=== PATIENT | female | born 1975 | race Caucasian/White ===

== ENCOUNTER → 2020-09-01 08:38 | Outpatient (BNVA) | payer BC, SELFPAY | PROVIDERS: PCP Internal Medicine; Visit Provider Internal Medicine Gastroenterology | DX: Z76.89 Persons encountering health services in other specified circumstances (principal) ==

== ENCOUNTER 2023-02-03 14:04 | Outpatient (REF) | payer BC, SELFPAY ==
[2023-02-03 15:09] LABS: MANUAL DIFF FLAG NO
[2023-02-03 15:45] LABS: Basophils Absolute Auto 0.1 X10*3/uL (0.0-0.2); Basophils Percent Auto 0.5 % (0-2); Eosinophils Absolute Auto 0.1 X10*3/uL (0.0-0.4); Eosinophils Percent Auto 1.3 % (0-4); Hematocrit 41.1 % (37.0-47.0); Imm Gran Abs Auto 0.03 X10*3/uL (0.00-0.03); Imm Gran Pct Auto 0.3 % (0.0-0.4); Lymphocytes Absolute Auto 2.4 X10*3/uL (1.2-4.9); Lymphocytes Percent Auto 24.2 % (20-40); Mean Corpuscular HGB Conc 34.1 g/dl (31.0-35.0); Mean Corpuscular Hemoglobin 30.8 pg (27.0-33.0); Mean Corpuscular Volume 90.5 fL (80.0-98.0); Mean Platelet Volume 10.3 fL (9.4-12.3); Monocytes Absolute Auto 0.7 X10*3/uL (0.1-1.2); Monocytes Percent Auto 6.6 % (2-11); Neutrophils Absolute Auto 6.6 x10*3/uL (2.0-8.3); Neutrophils Percent Auto 67.1 % (45-73); Platelet Count 303 X10*3/uL (160-400); Red Blood Count 4.54 X10*6/uL (4.20-5.50); Red Cell Distribution Width 13.1 % (11.0-16.0); White Blood Count 9.8 X10*3/uL (4.8-10.8)
[2023-02-03 16:22] LABS: Erythrocyte Sedimentation Rate 7 MM/HR (0-20)
[2023-02-03 16:28] LABS: Alanine Aminotransferase 21 U/L (0-31); Albumin Level 4.4 g/dL (3.5-5.0); Alkaline Phosphatase 50 U/L (39-117); Anion Gap 13 (12-20); Aspartate Amino Transferase 20 U/L (5-31); Bilirubin Total 0.4 mg/dL (0.0-1.0); Blood Urea Nitrogen 14 mg/dL (9-16); C Reactive Protein 0.23 mg/dL (< or = 0.50); Calcium 9.5 mg/dL (8.4-10.2); Carbon Dioxide 28 mmol/L (22-29); Chloride 104 mmol/L (96-108); Estimated Glomerular Filt Rate > 60; Glucose Random 88 mg/dL (60-115); Potassium 4.2 mmol/L (3.3-5.1); Sodium 141 mmol/L (135-145)
[2023-02-09 18:03] LABS: Calprotectin, Fecal 50 mcg/g
== END 2023-02-03 14:05 | disposition home or self-care (01) ==
LOC: HO.LAB 14:04
PROVIDERS: Visit Provider Internal Medicine Gastroenterology
DX: K75.81 Nonalcoholic steatohepatitis (NASH) (principal); K50.90 Crohn's disease, unspecified, without complications
CPT/HCPCS: 36415; 80053; 83993; 85025; 85652; 86140

== ENCOUNTER 2024-08-16 11:34 | Outpatient (REF) | payer BC, SELFPAY ==
[2024-08-16 12:23] LABS: MANUAL DIFF FLAG NO
[2024-08-16 12:53] LABS: Basophils Percent Auto 0.7 % (0-2); Eosinophils Absolute Auto 0.1 X10*3/uL (0.0-0.4); Eosinophils Percent Auto 1.4 % (0-4); Eosinophils Percent Auto 1.7 % (0-4); Hematocrit 39.3 % (37.0-47.0); Hematocrit 40.6 % (37.0-47.0); Hemoglobin 13.5 g/dl (12.0-16.0); Imm Gran Abs Auto 0.02 X10*3/uL (0.00-0.03); Imm Gran Pct Auto 0.3 % (0.0-0.4); Lymphocytes Absolute Auto 1.8 X10*3/uL (1.2-4.9); Lymphocytes Absolute Auto 1.9 X10*3/uL (1.2-4.9); Lymphocytes Percent Auto 30.5 % (20-40); Lymphocytes Percent Auto 32.1 % (20-40); Mean Corpuscular HGB Conc 33.3 g/dl (31.0-35.0); Mean Corpuscular HGB Conc 34.4 g/dl (31.0-35.0); Mean Corpuscular Hemoglobin 30.1 pg (27.0-33.0); Mean Corpuscular Hemoglobin 30.7 pg (27.0-33.0); Mean Corpuscular Volume 89.3 fL (80.0-98.0); Mean Corpuscular Volume 90.6 fL (80.0-98.0); Mean Platelet Volume 9.9 fL (9.4-12.3); Monocytes Absolute Auto 0.4 X10*3/uL (0.1-1.2); Monocytes Absolute Auto 0.5 X10*3/uL (0.1-1.2); Monocytes Percent Auto 7.3 % (2-11); Monocytes Percent Auto 7.8 % (2-11); Neutrophils Absolute Auto 3.3 x10*3/uL (2.0-8.3); Neutrophils Absolute Auto 3.4 x10*3/uL (2.0-8.3); Neutrophils Percent Auto 57.7 % (45-73); Neutrophils Percent Auto 59.5 % (45-73); Platelet Count 311 X10*3/uL (160-400); Platelet Count 315 X10*3/uL (160-400); Red Blood Count 4.48 X10*6/uL (4.20-5.50); Red Cell Distribution Width 13.2 % (11.0-16.0); White Blood Count 5.7 X10*3/uL (4.8-10.8); White Blood Count 5.8 X10*3/uL (4.8-10.8)
[2024-08-16 13:28] LABS: Alanine Aminotransferase 24 U/L (0-31); Alkaline Phosphatase 61 U/L (39-117); Anion Gap 14 (12-20); Aspartate Amino Transferase 20 U/L (5-31); Bilirubin Total 0.3 mg/dL (0.0-1.0); Blood Urea Nitrogen 10 mg/dL (9-16); C Reactive Protein 0.32 mg/dL (< or = 0.50); Calcium 9.1 mg/dL (8.4-10.2); Carbon Dioxide 24 mmol/L (22-29); Chloride 105 mmol/L (96-108); Estimated Glomerular Filt Rate > 60; Glucose Random 98 mg/dL (60-115); Potassium 3.9 mmol/L (3.3-5.1); Sodium 139 mmol/L (135-145); Total Protein 7.1 g/dL (6.5-8.0)
[2024-08-16 13:32] LABS: Alanine Aminotransferase 23 U/L (0-31); Alkaline Phosphatase 62 U/L (39-117); Anion Gap 13 (12-20); Aspartate Amino Transferase 21 U/L (5-31); Bilirubin Total 0.3 mg/dL (0.0-1.0); Blood Urea Nitrogen 10 mg/dL (9-16); C Reactive Protein 0.33 mg/dL (< or = 0.50); Carbon Dioxide 24 mmol/L (22-29); Chloride 106 mmol/L (96-108); Estimated Glomerular Filt Rate > 60; Glucose Random 100 mg/dL (60-115); Potassium 3.9 mmol/L (3.3-5.1); Sodium 139 mmol/L (135-145); Total Protein 7.1 g/dL (6.5-8.0)
[2024-08-16 13:42] LABS: Erythrocyte Sedimentation Rate 7 MM/HR (0-20)
[2024-08-16 13:52] LABS: Ferritin 37 ng/mL (10-250); TSH reflex Free T4 1.56 uIU/mL (0.32-4.0)
[2024-08-16 14:01] LABS: Folate 11.6 ng/mL (> or = 4.0); Vitamin B12 610 pg/mL (200-900)
[2024-08-19 20:43] LABS: Zinc 60 mcg/dL (60-130)
== END 2024-08-16 11:35 | disposition home or self-care (01) ==
LOC: HO.LAB 11:34
PROVIDERS: PCP Nurse Practitioner Gerontology; Visit Provider Internal Medicine Gastroenterology
DX: K50.90 Crohn's disease, unspecified, without complications (principal); K75.81 Nonalcoholic steatohepatitis (NASH)
CPT/HCPCS: 36415; 80053; 82607; 82728; 82746; 83735; 84443; 84630; 85025; 85652; 86140

== ENCOUNTER 2025-05-09 14:43 | Outpatient (REF) | payer BC, SELFPAY ==
[2025-05-09 15:49] LABS: MANUAL DIFF FLAG NO
[2025-05-09 16:03] LABS: Basophils Absolute Auto 0.1 X10*3/uL (0.0-0.2); Basophils Percent Auto 0.8 % (0-2); Eosinophils Absolute Auto 0.1 X10*3/uL (0.0-0.4); Eosinophils Percent Auto 1.3 % (0-4); Hemoglobin 13.8 g/dl (12.0-16.0); Imm Gran Abs Auto 0.01 X10*3/uL (0.00-0.03); Imm Gran Pct Auto 0.1 % (0.0-0.4); Lymphocytes Absolute Auto 2.6 X10*3/uL (1.2-4.9); Lymphocytes Percent Auto 32.9 % (20-40); Mean Corpuscular HGB Conc 33.7 g/dl (31.0-35.0); Mean Corpuscular Hemoglobin 29.9 pg (27.0-33.0); Mean Corpuscular Volume 88.9 fL (80.0-98.0); Mean Platelet Volume 9.7 fL (9.4-12.3); Monocytes Absolute Auto 0.6 X10*3/uL (0.1-1.2); Monocytes Percent Auto 7.6 % (2-11); Neutrophils Absolute Auto 4.5 x10*3/uL (2.0-8.3); Neutrophils Percent Auto 57.3 % (45-73); Platelet Count 312 X10*3/uL (160-400); Red Blood Count 4.61 X10*6/uL (4.20-5.50); Red Cell Distribution Width 12.8 % (11.0-16.0); White Blood Count 7.8 X10*3/uL (4.8-10.8)
[2025-05-09 16:24] LABS: Alanine Aminotransferase 25 U/L (0-31); Albumin Level 4.3 g/dL (3.5-5.0); Alkaline Phosphatase 48 U/L (39-117); Anion Gap 11 (12-20); Aspartate Amino Transferase 20 U/L (5-31); Bilirubin Total 0.4 mg/dL (0.0-1.0); Blood Urea Nitrogen 12 mg/dL (9-16); C Reactive Protein 0.34 mg/dL (< or = 0.50); Calcium 9.1 mg/dL (8.4-10.2); Carbon Dioxide 26 mmol/L (22-29); Chloride 106 mmol/L (96-108); Estimated Glomerular Filt Rate > 60; Glucose Random 96 mg/dL (60-115); Sodium 139 mmol/L (135-145)
== END 2025-05-09 14:44 | disposition home or self-care (01) ==
LOC: HO.LAB 14:43
PROVIDERS: PCP Nurse Practitioner Gerontology; Visit Provider Internal Medicine Gastroenterology
DX: K75.81 Nonalcoholic steatohepatitis (NASH) (principal); K50.90 Crohn's disease, unspecified, without complications; K21.9 Gastro-esophageal reflux disease without esophagitis
CPT/HCPCS: 36415; 80053; 85025; 86140

== ENCOUNTER 2025-05-09 14:43 | Outpatient (AMB) | payer BC, SELFPAY ==
--- NOTE | 2025-05-09 14:47 | A.OFFVIS_ITS ---
Vital Signs 05/09/25 14:48 Height 5 ft 5 in Weight 189 lb 9.561 oz BMI 31.5 BP 111/86 Blood Pressure Location Lt brachial Position Sitting Pulse 91 Intake Visit Reasons: f/u blood works Intake Note: Ema presents in the office as a follow up. CC: She states she has issues with her GERD and states that once in while she needs linzess due the taking mounjaro. Her bowels seem a little on the slow side due to that medication. Fleet Administrator Required: No Allergies erythromycin base Allergy (Mild, Verified 05/09/25 14:49) Stomach Upset HPI HPI f/u blood works: Details: 49 y/o f seen for f/u for crohns with ileitis, and erosions/ulcers, GERD here for f/u RECAP: last seen 09/01/2020 She had no major sx she had been on humira q2 weeks for 1-2 yrs 08/2019--VCE--no erosions, normal mucosa At visit 03/2020 she was c/o lower back pain, concern for SI joint inflammation, labs had been normal, she appeared to be in deep remission from crohns standpoint she went 'rogue' and stopped humira further w/u: fecal keli 07/2020--borderline 112 Xr pelvis--nml INTERIM: 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 VITAL SIGNS:see workflow HEENT: Nonicteric sclerae, PERRLA, EOMI. Oropharynx clear. Moist mucous membranes. Conjunctivae appear well perfused. No thyroid mass. CHEST: Chest wall is nontender. HEART: Regular rate and rhythm without murmurs. LUNGS: Clear to auscultation bilaterally. ABDOMEN: Soft, positive bowel sounds, nontender, no organomegaly.no flank tenderness SKIN: No rash, no excessive bruising, petechiae, or purpura. NEUROLOGIC: Cranial nerves II-XII intact without motor/sensory deficit. MS: Assessment & Plan 1/ Crohn's disease: Crohns disease, primarily small bowel stopped humira after being on remission for 2 years 2/ GERD PLAN: 1/ EGD for assessment 2/ change PPI and try taking in the night, avoid alcohol 3/ check labs and fecal lactoferrin PFSH Surgical History History of esophagogastroduodenoscopy (EGD) Hx of colonoscopy History of back surgery Family History Father HTN (hypertension) Mother HTN (hypertension) Sister No problems noted. Son No problems noted. Daughter No problems noted. Physical Exam Vital Signs: Last Vital Signs Pulse 91 05/09/25 14:48 BP 111/86 05/09/25 14:48 BMI result Body Mass Index 31.5 Assessment & Plan Assessment & Plan (1) GERD (gastroesophageal reflux disease): Code(s): K21.9 - Gastro-esophageal reflux disease without esophagitis Category: Medical Plan: as above Medications: New esomeprazole magnesium 40 mg PO DAILY 90 caps 1RF Discontinued omeprazole Discontinued Reason: Doctor's Order 40 mg PO DAILY 90 caps 3RF Coding Level of Care Code Est Pt Level 3 (22758) Diagnoses GERD (gastroesophageal reflux disease) K21.9
[2025-05-09 14:48] VITALS: BP 111/86; PULSE 91; BMI 31.5
--- OUTSIDE RECORDS SUMMARY | 2025-05-09 16:30 | XMS_ITS ---
Author Organization [facility] [address] Address [address] [place] [address] Care Team Providers Care Site Safety Manager Name Role Phone AMINAH, KENTON Unavailable [phone] Encounters Encounter Location Date Provider Diagnosis [facility] [address] [place] [address] 09/06/2024 KENTON BURR Plan Of Treatment No Information Progress Notes * LOUIE NickaDOB:1975 ( 49 yo F)Acc No.[id number]:09/06/2024 Patient:?Ema HER Provider:?KENTON BURR PA-C :1975???Age:49 Y???Sex:Female D ate:09/06/2024 Address:[address] [place], [place] [id number] Subjective: * Chief Complaints: * ??? * Medical History:? Objective: * Vitals:? Assessment: Plan: * Treatment: * Images: Billing Information: * Visit Code:? * Procedure Codes:? * Electronic signature of DOMENICO BURR PA-C on 05/09/2025 at 04:30 PM EDT Sign off status: Pending * Provider:?KENTON BURR PA-C Date:?09/06 Generated for Felicia lainez/Titus/eTransmitting on:?05/09/2025 04:30 PM EDT
== END 2025-05-09 15:16 | disposition home or self-care (01) ==
LOC: HO.HGI 14:44
PROVIDERS: PCP Nurse Practitioner Gerontology; Visit Provider Internal Medicine Gastroenterology
DX: K21.9 Gastro-esophageal reflux disease without esophagitis (principal)
CPT/HCPCS: 99213